=== PATIENT | male | born 1960 | race American Indian/Alaskan Native ===

== ENCOUNTER 2019-04-06 07:13 | Day surgery (SDC) | payer OTHER ==
[2019-04-06 07:44] VITALS: BMI 29.5
[2019-04-06 09:04] VITALS: TEMP 97.7
[2019-04-06 12:58] VITALS: BP 124/87; PULSE 75
--- NOTE | 2019-04-09 11:20 | PATH ---
Surgical Pathology Report Patient Name: KTAE LEE [facility]. Rec. #: [id number] /Age/Gender: 1960 (Age: 59) / M Account: [id number] Location: U-ENDOSCOPY Taken: 04/06/2019 Received: 04/06/2019 Reported: 04/09/2019 Physicians: Elle Beck M.D. Specimen(s) Received A: 2ND PORTION DUODENUM AND DUODENAL BULB B: BX ANTRUM C: BX GE JUNCTION D: ESOPHAGUS 35CM E: CECAL POLYP F: ASCENDING COLON POLYP G: DESCENDING COLON POLYP H: RECTAL POLYP Clinical History Occult GI bleed Postoperative diagnosis: Hiatal hernia, severe GERD, colon diverticuli, polyps Final Diagnosis A. SECOND PORTION OF DUODENUM AND DUODENAL BULB, BIOPSY: DUODENUM MUCOSA WITH EPITHELIAL EROSION, ACUTE AND CHRONIC DUODENITIS. B. ANTRUM, BIOPSY: GASTRIC MUCOSA WITH CHRONIC GASTRITIS. IMMUNOSTAIN FOR H. PYLORI IS NEGATIVE. NEGATIVE FOR INTESTINAL METAPLASIA. C. GE JUNCTION, BIOPSY: COLUMNAR EPITHELIUM WITH ACUTE AND CHRONIC INFLAMMATION, FOCAL HYPERPLASTIC CHANGE. NEGATIVE FOR INTESTINAL METAPLASIA. D. 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 NEGATIVE FOR DYSPLASIA. E. CECAL POLYP, BIOPSY: COLONIC MUCOSA WITH SURFACE HYPERPLASTIC CHANGE. F. ASCENDING COLON POLYP, POLYPECTOMY: TUBULAR ADENOMA. G. DESCENDING COLON POLYP, POLYPECTOMY: TUBULAR ADENOMA. H. RECTAL POLYP, POLYPECTOMY: HYPERPLASTIC POLYP. Electronically Signed Mumatz Rashid M.D. Gross Description A. Received in formalin, labeled "biopsy second portion of duodenum and duodenal bulb" are 3 sneed, irregular portions of soft tissue ranging from 0.2-0.4 cm. in greatest dimension. The specimens are submitted in toto in one cassette. B. Received in formalin, labeled "biopsy antrum" are 4 sneed, irregular portions of soft tissue ranging from 0.2-0.5 cm. in greatest dimension. The specimens are submitted in toto in one cassette. C. Received in formalin, labeled "biopsy GE junction" are 3 sneed, irregular portions of soft tissue ranging from 0.1-0.4 cm. in greatest dimension. The specimens are submitted in toto in one cassette. D. Received in formalin, labeled "biopsy esophagus at 35 cm" is a sneed, irregular portion of soft tissue measuring 0.4 cm. in greatest dimension. The specimen is submitted in toto in one cassette. E. Received in formalin, labeled "biopsy cecal polyp" are 2 sneed, irregular portions of soft tissue averaging 0.3 cm. in greatest dimension. The specimens are submitted in toto in one cassette. F. Received in formalin, labeled "ascending colon polyp" are 6 sneed, irregular to polypoid portions of soft tissue ranging from 0.2-0.7 cm. in greatest dimension. The specimens are submitted in toto in one cassette. G. Received in formalin, labeled "biopsy descending colon polyp" are 2 sneed, irregular portions of soft tissue averaging 0.2 cm. in greatest dimension. The specimens are submitted in toto in one cassette. H. Received in formalin, labeled "biopsy rectal polyp" are 2 sneed, irregular portions of soft tissue measuring 0.2 and 0.4 cm. in greatest dimension. The specimens are submitted in toto in one cassette. 04/06/2019 saudi04/06/2019
== END 2019-04-06 10:05 | disposition home or self-care (01) ==
LOC: JASU-ENDO 07:13
PROVIDERS: ATTEND Internal Medicine Gastroenterology
PROC: 0DBH8ZX Excision of Cecum, Via Natural or Artificial Opening Endoscopic, Diagnostic (ICD-10-PCS; 2019-04-06)
PROC: 0DBP8ZX Excision of Rectum, Via Natural or Artificial Opening Endoscopic, Diagnostic (ICD-10-PCS; 2019-04-06)
PROC: 0DBM8ZX Excision of Descending Colon, Via Natural or Artificial Opening Endoscopic, Diagnostic (ICD-10-PCS; 2019-04-06)
PROC: 0DB98ZX Excision of Duodenum, Via Natural or Artificial Opening Endoscopic, Diagnostic (ICD-10-PCS; 2019-04-06)
PROC: 0DB68ZX Excision of Stomach, Via Natural or Artificial Opening Endoscopic, Diagnostic (ICD-10-PCS; 2019-04-06)
PROC: 0DB58ZX Excision of Esophagus, Via Natural or Artificial Opening Endoscopic, Diagnostic (ICD-10-PCS; 2019-04-06)
PROC: 0DBK8ZX Excision of Ascending Colon, Via Natural or Artificial Opening Endoscopic, Diagnostic (ICD-10-PCS; principal; 2019-04-06 08:00)
DX: Z12.11 Encounter for screening for malignant neoplasm of colon (principal); D12.0 Benign neoplasm of cecum; D12.2 Benign neoplasm of ascending colon; D12.5 Benign neoplasm of sigmoid colon; K62.1 Rectal polyp; K57.30 Diverticulosis of large intestine without perforation or abscess without bleeding; K64.8 Other hemorrhoids; K29.50 Unspecified chronic gastritis without bleeding; K29.80 Duodenitis without bleeding; K22.8 Other specified diseases of esophagus; K21.0 Gastro-esophageal reflux disease with esophagitis; K44.9 Diaphragmatic hernia without obstruction or gangrene; K22.10 Ulcer of esophagus without bleeding